=== PATIENT | female | born 1995 ===

== ENCOUNTER 2018-01-17 02:13 | Emergency (ER) | payer SELFPAY ==
[2018-01-17 02:36] VITALS: TEMP 98.7
[2018-01-17] MEDS ORDERED: Sodium Chloride 0.9% 1,000 ML IV STA (02:46)
[2018-01-17 03:26] LABS: BASO # 0.1 K/uL (0.0-0.2); BASO % 0.5 % (0.0-2.0); EOS % 0.2 % (0.0-4.0); HEMOGLOBIN 12.9 g/dL (12.0-16.0); LYMPH # 2.4 K/uL (1.0-4.3); LYMPH % 17.5 % (20.0-40.0); MEAN CELL VOLUME 87.3 fl (81.0-99.0); MEAN CORPUSCULAR HEMOGLOBIN 30.3 pg (27.0-31.0); MEAN CORPUSCULAR HGB CONC 34.7 g/dL (33.0-37.0); MEAN PLATELET VOLUME 9.1 fl (7.2-11.7); MONO # 0.5 K/uL (0.0-0.8); MONO % 3.3 % (0.0-10.0); NEUT # 10.8 K/uL (1.8-7.0); NEUT % 78.5 % (50.0-75.0); NRBC % 0.1 % (0.0-0.0); RBC 4.26 Mil/uL (3.80-5.20); RED CELL DISTRIBUTION WIDTH 13.6 % (11.5-14.5); WHITE BLOOD COUNT 13.8 K/uL (4.8-10.8)
--- NOTE | 2018-01-17 03:33 | ED PDOC ---
HPI: Abdomen Time Seen by Provider: 01/17/18 02:18 Chief Complaint (Nursing): Abdominal Pain Chief Complaint (Provider): Abdominal Pain History Per: Patient History/Exam Limitations: no limitations Onset/Duration Of Symptoms: Days (x1 week) Current Symptoms Are (Timing): Still Present Additional Complaint(s): 22 y/o female with no significant pmhx, who presents to the ED for evaluation of abdominal pain and diarrhea x1 week. Patient states shes had intermittent non-bloody diarrhea and crampy abdominal pain. She reports her diarrhea was resolved as of Wednesday, but states she hasnt had a BM. Patient also reports nausea and 1 episode of non-bilious, non-bloody vomiting just prior to arrival. Denies fever and any recent travel. PMD: None provided Past Medical History Reviewed: Historical Data, Nursing Documentation, Vital Signs Vital Signs: Last Vital Signs Temp 98.7 F 01/17/18 02:33 Pulse 90 01/17/18 02:33 Resp 16 01/17/18 02:33 BP 130/82 01/17/18 02:33 Pulse Ox 99 01/17/18 05:53 - Medical History PMH: No Chronic Diseases - Surgical History Surgical History: No Surg Hx - Family History Family History: States: Unknown Family Hx - Social History Current smoker - smoking cessation education provided: No Alcohol: None Drugs: Denies - Home Medications Home Medications: Ambulatory Orders Medication Instructions Recorded Dicyclomine [Bentyl] 20 mg PO Q12 PRN #20 tab 01/17/18 Ondansetron ODT [Zofran ODT] 4 mg PO Q6 PRN #8 odt 01/17/18 - Allergies Allergies/Adverse Reactions: Allergies Allergy/AdvReac Type Severity Reaction Status Date / Time YELLOW CHEESE Allergy RASH Uncoded 01/17/18 02:33 Review of Systems ROS Statement: Except As Marked, All Systems Reviewed And Found Negative Constitutional: Negative for: Fever Gastrointestinal: Positive for: Nausea, Vomiting, Abdominal Pain, Diarrhea Physical Exam - Reviewed Nursing Documentation Reviewed: Yes Vital Signs Reviewed: Yes - Physical Exam Appears: Positive for: Non-toxic, No Acute Distress Head Exam: Positive for: ATRAUMATIC, NORMAL INSPECTION, NORMOCEPHALIC Skin: Positive for: Normal Color, Warm, Dry. Negative for: Rash Eye Exam: Positive for: EOMI, Normal appearance, PERRL Neck: Positive for: Normal, Painless ROM, Supple Cardiovascular/Chest: Positive for: Regular Rate, Rhythm. Negative for: Murmur Respiratory: Positive for: Normal Breath Sounds. Negative for: Respiratory Distress Gastrointestinal/Abdominal: Positive for: Tenderness (diffuse, mild) Back: Positive for: Normal Inspection. Negative for: L CVA Tenderness, R CVA Tenderness, Vertebral Tenderness Extremity: Positive for: Normal ROM. Negative for: Pedal Edema, Deformity Neurologic/Psych: Positive for: Alert, Oriented. Negative for: Motor/Sensory Deficits - Laboratory Results Result Diagrams: 01/17/18 03:20 01/17/18 03:20 - ECG O2 Sat by Pulse Oximetry: 99 (RA) Pulse Ox Interpretation: Normal Medical Decision Making Medical Decision Makin:46 Initial Impression: 22 y/o female with abdominal pain and diarrheal illness Plan: --CMP --Lipase --Urine --CBC --Bentyl 20mg PO --1LNS --Reglan 10mg IVPB --Heplock insertion --Urinalysis --Reevaluation 03:[address] due to patient's elevated WBC count. Administered Morphine due to patient's continued pain. --CT Abdomen and Pelvis IV Contrast --Morphine 4mg IVP --Reevaluation 05:28 CT ABDOMEN AND PELVIS FINDINGS: LUNG BASES: No significant abnormality seen. ABDOMEN: LIVER: Fatty infiltration of the liver. GALLBLADDER AND BILE DUCTS: No CT evidence of acute cholecystitis. No evidence of significant biliary ductal dilatation. PANCREAS: No CT evidence of acute pancreatitis. SPLEEN: No acute abnormality of the spleen identified. ADRENALS: No acute abnormality of the adrenal glands identified. KIDNEYS AND URETERS: No acute abnormality of the kidneys identified. No evidence of significant hydrouereteronephrosis. STOMACH AND BOWEL: Retained stool noted throughout the colon, with no evidence of a significant large bowel obstruction or fecal impaction. Bowel is otherwise unremarkable in appearance. No evidence of small bowel obstruction. No acute abnormality of the stomach or duodenum identified. PELVIS: APPENDIX: Appendix is seen, and is within normal limits in appearance. BLADDER: Mild thickening of the bladder wall. REPRODUCTIVE: 2 cm lesion with a thin, enhancing and collapsed soft tissue rim in the left ovary. This has an appearance suggestive of a recently ruptured/involuting ovarian cyst , such as a corpus luteal cyst. Followup pelvic ultrasound as clinically indicated. No acute abnormality of the uterus identified. ABDOMEN and PELVIS: INTRAPERITONEAL SPACE: No evidence of free intraperitoneal air or fluid. BONES/JOINTS: No acute fractures or other acute bony abnormality noted. SOFT TISSUES: No acute abnormality of the visualized soft tissues is seen. VASCULATURE: No evidence of abdominal aortic aneurysm. No evidence of periaortic hemorrhage. LYMPH NODES: No evidence of diffuse lymphadenopathy. IMPRESSION: - Mild bladder wall thickening. This is a nonspecific finding, but can be seen with cystitis. Recommend clinical correlation. - Otherwise, no evidence of significant acute process. - See above for remaining findings. Patient is medically stable and requires no further treatment in the ED at this time. Return precautions provided and patient advised to follow up with PMD. Scribe Attestation: Documented by Moi Perkins, acting as a scribe for David Zee MD. Provider Scribe Attestation: All medical record entries made by the Scribe were at my direction and personally dictated by me. I have reviewed the chart and agree that the record accurately reflects my personal performance of the history, physical exam, medical decision making, and the department course for this patient. I have also personally directed, reviewed, and agree with the discharge instructions and disposition. Disposition - Clinical Impression Clinical Impression: Gastroenteritis - Patient ED Disposition Is Patient to be Admitted: No Counseled Patient/Family Regarding: Studies Performed, Diagnosis, Need For Followup, Rx Given - Disposition Disposition: Routine/Home Disposition Time: 05:45 Condition: STABLE Prescriptions: Dicyclomine [Bentyl] 20 mg PO Q12 PRN #20 tab PRN Reason: abdominal pain/diarrhea Ondansetron ODT [Zofran ODT] 4 mg PO Q6 PRN #8 odt PRN Reason: Nausea/Vomiting Instructions: Gastroenteritis (ED) Forms: [employer] (Faroese)
[2018-01-17 03:37] LABS: ALBUMIN 4.4 g/dL (3.5-5.0); CALCIUM 9.6 mg/dL (8.4-10.2); GFR AFRICAN-AMERICAN > 60; GFR NON-AFRICAN AMERICAN > 60; LIPASE 101 U/L (23-300)
[2018-01-17 03:40] LABS: ALT/SGPT 64 U/L (9-52); AST/SGOT 60 U/L (14-36); BLOOD UREA NITROGEN 13 mg/dl (7-17)
[2018-01-17 03:44] LABS: SQUAMOUS EPITHIAL 2 /hpf (0-5); URINE BILIRUBIN NEGATIVE (NEGATIVE); URINE BLOOD NEGATIVE (NEGATIVE); URINE CLARITY SLIGHTY-CLOUDY (Clear); URINE COLOR YELLOW (YELLOW); URINE GLUCOSE (UA) NEG (Normal); URINE LEUKOCYTE ESTERASE TRACE Leu/uL (Negative); URINE PROTEIN NEGATIVE (NEGATIVE)
[2018-01-17] MEDS ORDERED: Sodium Chloride 0.9% 50 ML IV ONE (04:01)
[2018-01-17] MEDS ORDERED: Iohexol 300 100 ML IJ ONE (04:01)
[2018-01-17] MEDS ORDERED: Morphine 4 MG/ML VIAL ONE (04:37)
--- NOTE | 2018-01-17 05:28 | CT ---
EXAM: CT Abdomen and Pelvis With Intravenous Contrast EXAM DATE/TIME: 01/17/2018 3:53 AM CLINICAL HISTORY: 22 years old, female; Pain; Abdominal pain; Localized; Left lower quadrant (llq); Additional info: Llq tenderness TECHNIQUE: Axial computed tomography images of the abdomen and pelvis with intravenous contrast. All CT scans at this facility use one or more dose reduction techniques, viz.: automated exposure control; ma/kV adjustment per patient size (including targeted exams where dose is matched to indication; i.e. head); or iterative reconstruction technique. Coronal and sagittal reformatted images were created and reviewed. CONTRAST: 90 mL of [id number] administered intravenously. COMPARISON: No relevant prior studies available. FINDINGS: LUNG BASES: No significant abnormality seen. ABDOMEN: LIVER: Fatty infiltration of the liver. GALLBLADDER AND BILE DUCTS: No CT evidence of acute cholecystitis. No evidence of significant biliary ductal dilatation. PANCREAS: No CT evidence of acute pancreatitis. SPLEEN: No acute abnormality of the spleen identified. ADRENALS: No acute abnormality of the adrenal glands identified. KIDNEYS AND URETERS: No acute abnormality of the kidneys identified. No evidence of significant hydrouereteronephrosis. STOMACH AND BOWEL: Retained stool noted throughout the colon, with no evidence of a significant large bowel obstruction or fecal impaction. Bowel is otherwise unremarkable in appearance. No evidence of small bowel obstruction. No acute abnormality of the stomach or duodenum identified. PELVIS: APPENDIX: Appendix is seen, and is within normal limits in appearance. BLADDER: Mild thickening of the bladder wall. REPRODUCTIVE: 2 cm lesion with a thin, enhancing and collapsed soft tissue rim in the left ovary. This has an appearance suggestive of a recently ruptured/involuting ovarian cyst, such as a corpus luteal cyst. Followup pelvic ultrasound as clinically indicated. No acute abnormality of the uterus identified. ABDOMEN and PELVIS: INTRAPERITONEAL SPACE: No evidence of free intraperitoneal air or fluid. BONES/JOINTS: No acute fractures or other acute bony abnormality noted. SOFT TISSUES: No acute abnormality of the visualized soft tissues is seen. VASCULATURE: No evidence of abdominal aortic aneurysm. No evidence of periaortic hemorrhage. LYMPH NODES: No evidence of diffuse lymphadenopathy. IMPRESSION: - Mild bladder wall thickening. This is a nonspecific finding, but can be seen with cystitis. Recommend clinical correlation. - Otherwise, no evidence of significant acute process. - See above for remaining findings.
[2018-01-17 05:55] VITALS: BP 97/58; PULSE 83; RESP 18
[2018-01-17 05:56] VITALS: O2SAT 99
== END 2018-01-17 05:57 | disposition home or self-care (01) ==
LOC: H.ER 02:13
DX: K52.9 Noninfective gastroenteritis and colitis, unspecified (principal)
CPT/HCPCS: 74177; 80053; 81003; 81025; 83690; 85025; 96365; 96375; 99283; J2270; J2765; J7040; Q9967

== ENCOUNTER 2018-09-06 20:45 | Emergency (ER) | payer SELFPAY ==
[2018-09-06 21:34] VITALS: RESP 16
[2018-09-06 21:35] VITALS: BMI 30.2
--- NOTE | 2018-09-06 23:13 | ED PDOC ---
HPI: Back Time Seen by Provider: 09/06/18 23:00 Chief Complaint (Nursing): Back Pain Chief Complaint (Provider): low back pain History Per: Patient History/Exam Limitations: no limitations Onset/Duration Of Symptoms: Days (3) Current Symptoms Are (Timing): Still Present Exacerbating Factor(s): Turning, Movement, Sitting, Standing Additional Complaint(s): 23 y/o female presents for evaluation of low back pain x 3 days. Associated radiation of pain down left leg. Patient reports 5-year history of intermittent low back muscle spasms; states after going to Chiropractor tonight symptoms worsened, prompting ED visit. Denies fever, nausea/vomiting, numbness/weakness lower extremities, bowel/bladder incontinence. No medications taken for relief thus far. Past Medical History Reviewed: Historical Data, Nursing Documentation, Vital Signs Vital Signs: Last Vital Signs Temp 98.2 F 09/06/18 21:34 Pulse 85 09/06/18 21:34 Resp 16 09/06/18 21:34 BP 128/75 09/06/18 21:34 Pulse Ox 98 09/06/18 21:34 - Medical History PMH: No Chronic Diseases - Surgical History Surgical History: No Surg Hx - Family History Family History: States: Unknown Family Hx - Home Medications Home Medications: Ambulatory Orders Medication Instructions Recorded Dicyclomine [Bentyl] 20 mg PO Q12 PRN #20 tab 01/17/18 Ondansetron ODT [Zofran ODT] 4 mg PO Q6 PRN #8 odt 01/17/18 Cyclobenzaprine [Cyclobenzaprine 10 mg PO BID PRN #14 tab 09/07/18 HCl] Lidocaine 5% [Lidoderm] 1 patch TOP DAILY PRN #7 patch 09/07/18 Naproxen [Naprosyn] 500 mg PO Q12 PRN #20 tablet 09/07/18 - Allergies Allergies/Adverse Reactions: Allergies Allergy/AdvReac Type Severity Reaction Status Date / Time YELLOW CHEESE Allergy RASH Uncoded 09/06/18 21:35 Review of Systems ROS Statement: Except As Marked, All Systems Reviewed And Found Negative Musculoskeletal: Positive for: Back Pain Physical Exam - Reviewed Nursing Documentation Reviewed: Yes Vital Signs Reviewed: Yes - Physical Exam Appears: Positive for: Well, Non-toxic, No Acute Distress Head Exam: Positive for: ATRAUMATIC, NORMAL INSPECTION, NORMOCEPHALIC Skin: Positive for: Normal Color Eye Exam: Positive for: Normal appearance ENT: Positive for: Normal ENT Inspection Back: Positive for: Vertebral Tenderness (lower lspine tenderness without skin changes, edema, bony deformity. ), Decreased ROM (secondary to pain), Muscle Spasm (left lspine paraverbetral tenderness, left gluteal tenderness). Negative for: L CVA Tenderness, R CVA Tenderness Extremity: Positive for: Normal ROM Neurologic/Psych: Positive for: Alert, Oriented (x3) - ECG O2 Sat by Pulse Oximetry: 98 - Progress ED Course And Treament: -upreg -udip -Toradol IM -flexeril PO -tramadol PO On re-eval, patient states pain improved Patient educated on findings, discharged with rx Naproxen, Flexeril, LIdoderm Advised warm compresses Follow up PMD within 2-3 days Return precautions given Disposition - Clinical Impression Clinical Impression: Low back pain - Patient ED Disposition Is Patient to be Admitted: No Counseled Patient/Family Regarding: Studies Performed, Diagnosis, Need For Followup, Rx Given - Disposition Referrals: [facility] [Outside] Disposition: Routine/Home Disposition Time: 01:45 Condition: IMPROVED Prescriptions: Cyclobenzaprine [Cyclobenzaprine HCl] 10 mg PO BID PRN #14 tab PRN Reason: Muscle Spasm Lidocaine 5% [Lidoderm] 1 patch TOP DAILY PRN #7 patch PRN Reason: Pain, Moderate (4-7) Naproxen [Naprosyn] 500 mg PO Q12 PRN #20 tablet PRN Reason: Pain, Moderate (4-7) Instructions: Low Back Pain in Adults Forms: [employer] (Guatemalan)
[2018-09-07 00:03] LABS: SQUAMOUS EPITHIAL 12 /hpf (0-5); URINE AMORPHOUS SEDIMENT RARE /ul (<OCC); URINE BACTERIA RARE (<OCC); URINE BILIRUBIN NEGATIVE (NEGATIVE); URINE BLOOD NEGATIVE (NEGATIVE); URINE CLARITY CLOUDY (Clear); URINE COLOR YELLOW (YELLOW); URINE GLUCOSE (UA) NEG (NEGATIVE); URINE LEUKOCYTE ESTERASE NEG Leu/uL (Negative); URINE PROTEIN NEGATIVE (NEGATIVE)
[2018-09-07 02:26] VITALS: BP 121/70; PULSE 88; TEMP 98; O2SAT 99
== END 2018-09-07 02:12 | disposition home or self-care (01) ==
LOC: H.ER 20:45
DX: M54.5 Low back pain (principal)
CPT/HCPCS: 81003; 81025; 87086; 96372; 99283; J1885